=== PATIENT | male | born 1970 | race Two or more races ===

== ENCOUNTER → 2020-09-21 | Outpatient (CLI) | payer OTHER | END | disposition home or self-care (01) | LOC: XYW 08:39 | DX: M50.222 Other cervical disc displacement at C5-C6 level (principal); M50.223 Other cervical disc displacement at C6-C7 level; M50.23 Other cervical disc displacement, cervicothoracic region; M25.78 Osteophyte, vertebrae; M48.02 Spinal stenosis, cervical region; R22.1 Localized swelling, mass and lump, neck; M89.38 Hypertrophy of bone, other site | CPT/HCPCS: 72141 ==